=== PATIENT | male | born 1955 | race Caucasian/White ===

== ENCOUNTER 2018-06-17 07:22 | Day surgery (SDC) | payer OTHER ==
[~2018-06-17] VITALS: Ht 180.3 cm; Wt 83.5 kg
[~2018-06-17 07:22] MED LIST: GABA300 PO; HYDR1TAB94 PO; Hair, Skin & N1 EACH PO; LISI5 PO; OXYACE5T PO; PROM25 PO; TAMS.4ER PO; ZOLP10
--- NOTE | 2018-06-17 07:55 | NUR ---
Ambulatory in Day Surgery Patient States Post-Procedure ride home has been arranged. History, Chart, Medications and Allergies reviewed before start of procedure.Lungs clear T/O to Auscultation. Patient confirms NPO status and agrees with scheduled surgery.
--- NOTE | 2018-06-17 08:24 | NUR ---
IV ATTEMPT #1 BY ANEUDY GRIMALDO UNSUCCESSFUL, IV SUCCESSFULLY STARTED #2 BY JORDON GRIMALDO
--- NOTE | 2018-06-17 09:03 | NUR ---
VERIFIED WITH PYLENI THAT IT IS OKAY TO GIVE CEPHAZOLIN DUE TO ALLERGY TO PCN AND CEFAZOLIN. INFORMED IT IS.
--- NOTE | 2018-06-17 11:32 | NUR ---
INTO STEP VIA MAR. PT A&OX3. DENIES PAIN OR NAUSEA. LEFT GROIN DRESSING C/D/I. PT OFFERED PO FLUIDS-REFUSING AT THIS TIME.
--- NOTE | 2018-06-17 11:40 | NUR ---
PT GIVEN IVETTE MIST AND SODA CRACKERS PER HIS REQUEST.
--- NOTE | 2018-06-17 13:19 | NUR ---
Patient up to Ambulate independently. Gait steady. Discharge instructions reviewed with patient. Patient verbalizes understanding. Copy given to patient to take home. Patient States Post-Procedure ride home has been arranged. Discharged via wheelchair to private car for ride home.
== END 2018-06-18 23:13 | disposition home or self-care (01) ==
LOC: ORSCMMR 07:22 → ORD 09:00 → ORSCMMR 06-18 23:13
PROVIDERS: Surgery
PROC: 0YU60JZ Supplement Left Inguinal Region with Synthetic Substitute, Open Approach (ICD-10-PCS; principal; 2018-06-17 09:00)
DX: K40.90 Unilateral inguinal hernia, without obstruction or gangrene, not specified as recurrent (principal); I10 Essential (primary) hypertension; Z79.899 Other long term (current) drug therapy
CPT/HCPCS: C1781; J0690; J1100; J1885; J2250; J2405; J3010; J7120

== ENCOUNTER → 2020-01-29 | Outpatient (CLI) | payer MEDICARE ==
[2020-01-29 12:39] LABS: Source, Urine Catheter
[2020-01-29 13:19] LABS: Appearance, Urine Clear (Clear); Color, Urine Yellow (P-Yellow)
[2020-01-29 13:20] LABS: Bacteria Not Seen /hpf; Bilirubin, Urine Neg (Neg); Blood, Urine 2+ (Neg); Glucose Qualitative, Urine Neg (Normal); Ketones, Urine Neg (Neg); Leukocyte Esterase, Urine Neg (Neg); Nitrite, Urine Neg (Neg); Protein, Urine Trace (Neg); Squamous Epithelial Cells Rare /hpf (Few); Urobilinogen, Urine NORM (Normal); White Blood Cells, Urine Not Seen /hpf (0-5)
== END ==
LOC: LAB EV 11:00 → LAB SHORT 11:00
PROVIDERS: Nurse Practitioner Family
DX: N40.1 Benign prostatic hyperplasia with lower urinary tract symptoms (principal); N13.8 Other obstructive and reflux uropathy
CPT/HCPCS: 81001; 87070; 87077; 87186

== ENCOUNTER → 2020-02-15 | Outpatient (CLI) | payer MEDICARE | END | disposition home or self-care (01) | LOC: LAB SHORT 11:23 → PLD 11:23 | DX: D48.5 Neoplasm of uncertain behavior of skin (principal) | CPT/HCPCS: 88304; 88305 ==

== ENCOUNTER → 2021-03-11 | Outpatient (CLI) | payer MEDICARE | END | disposition home or self-care (01) | LOC: LAB SHORT 11:53 | DX: L82.1 Other seborrheic keratosis (principal) | CPT/HCPCS: 88305 ==

== ENCOUNTER 2021-05-21 05:50 | Day surgery (SDC) | payer MEDICARE ==
[~2021-05-21] VITALS: Ht 182.9 cm; Wt 85.1 kg
[~2021-05-21 05:50] MED LIST changes: +ZOLP10 PO
--- NOTE | 2021-05-21 09:09 | NUR ---
FOLDED 4X4 GAUZE UNDER CLEAR OCCLUSIVE DRSG TO MIDDLE ABDOMEN NOTED INTACT WITH NO VISIBLE DRAINAGE, SWELLING, ERYTHEMA OR BRUISING NOTED AROUND SITE. PATIENT QUIETLY LAYING IN GURNEY. WHEN ASKED, HE C/O 3-4/10 ACHING PAIN TO SURGICAL SITE AND DENIES NAUSEA. NO OTHER C/O VERBALIZED. AGREES TO DRINK JUICE.
--- NOTE | 2021-05-21 09:31 | NUR ---
TOLERATING SIPS OF JUICE. RATES UMBILICAL SURGICAL PAIN 3/10. DENIES OTHER C/O. SPOKE TO ON PHONE AND REVIEWED DISCHARGE INSTRUCTIONS. ANSWERED QUESTIONS.
--- NOTE | 2021-05-21 09:56 | NUR ---
0948- UP TO DRESS. GAIT STEADY. STATES UMBILICAL SURGICAL PAIN IS TOLERABLE AND DENIES NAUSEA. ANALGESIC GIVEN FOR C/O PAIN. PRESCRIPTION TO FILL GIVEN TO PATIENT. VSS. Discharge instructions reviewed with patient. Patient verbalizes understanding. Copy given to patient to take home. Patient States Post-Procedure ride home has been arranged with his .
== END 2021-05-21 09:54 | disposition home or self-care (01) ==
LOC: ORSCMMR 05:50 → ORD 07:30 → ORSCMMR 09:54
PROVIDERS: Surgery
PROC: 0WUF0JZ Supplement Abdominal Wall with Synthetic Substitute, Open Approach (ICD-10-PCS; principal; 2021-05-21 07:30)
DX: K43.6 Other and unspecified ventral hernia with obstruction, without gangrene (principal); I10 Essential (primary) hypertension; F17.210 Nicotine dependence, cigarettes, uncomplicated; Z79.899 Other long term (current) drug therapy
CPT/HCPCS: A9270; C1781; J0690; J1100; J2250; J2405; J2704; J3010; J7120

== ENCOUNTER 2024-06-18 08:37 | Emergency (ER) | payer MEDICARE ==
[~2024-06-18] VITALS: Ht 182.9 cm; Wt 68.0 kg
[2024-06-18] MEDS ORDERED: Enoxaparin 60 MG/0.6 ML SYR SC ONE (09:35)
[2024-06-18 10:10] VITALS: BP 109/73
[2024-06-18] MEDS ORDERED: Rivaroxaban 10 MG Tab PO ONE (10:35)
== END 2024-06-18 11:09 | disposition home or self-care (01) ==
LOC: ER 08:37
DX: I82.402 Acute embolism and thrombosis of unspecified deep veins of left lower extremity (principal); Z76.0 Encounter for issue of repeat prescription; I10 Essential (primary) hypertension; J45.909 Unspecified asthma, uncomplicated
CPT/HCPCS: 99281; A9270

== ENCOUNTER 2024-07-17 07:01 | Day surgery (SDC) | payer MEDICARE ==
[~2024-07-17] VITALS: Ht 182.9 cm; Wt 65.6 kg
[2024-07-17] VITALS (9 sets, daily range): BP systolic 107–145; BP diastolic 67–80
[~2024-07-17 07:01] MED LIST changes: +ACET500 PO; +CeFAZolin Sodium 2,000 MG in NS 100 ML IV SCH; +ELIQUIS5 M2 PO; +ENOX60I SC; +LOPE2C PO; +Lactated Ringer's 1,000 ML IV SCH; +METAMUCIL POWD798 GM; +ONDA4 PO; +OXYC5 PO
[2024-07-17] MEDS ORDERED: CeFAZolin Sodium 2,000 MG VIAL ONE (07:02)
[2024-07-17] MEDS ORDERED: Lidocaine HCl 1% 30 ML SDV ONE (07:19)
[2024-07-17] MEDS ORDERED: Bupivacaine 0.5% HCl 5 MG/ML 30MLVIAL ONE (07:19)
[2024-07-17] MEDS ORDERED: Midazolam HCl 1MG / ML 2ML Vial ONE (07:32)
[2024-07-17] MEDS ORDERED: FentaNYL Citrate 50 MCG/ML 5 ML Injection ONE (07:32)
[2024-07-17] MEDS ORDERED: propofoL 20 ML IV ONE (07:32)
--- NOTE | 2024-07-17 07:32 | NUR ---
Ambulatory in Day Surgery History, Chart, Medications and Allergies reviewed before start of procedure. Pre-Op teaching done. Pt verbalizes understanding. Patient States Post-Procedure ride home has been arranged.
[2024-07-17] MEDS ORDERED: Rocuronium Bromide 10 MG/ML 5ML Injection IV ONE (07:33)
[2024-07-17] MEDS ORDERED: Albuterol 2.5 MG/3 ML VIAL INH PRN (07:35)
[2024-07-17] MEDS ORDERED: Atropine Sulfate 0.1 MG/ML 10ML SYR IV PRN (07:35)
[2024-07-17] MEDS ORDERED: HYDROmorphone HCl/Pf 1MG SYR IV PRN (07:35)
[2024-07-17] MEDS ORDERED: ePHEDrine Sulfate 50 MG/ML 1ML Injection IV PRN (07:35)
[2024-07-17] MEDS ORDERED: Labetalol HCL 5 MG/ML 4ML Injection (Single Dose) IV PRN (07:35)
[2024-07-17] MEDS ORDERED: Phenylephrine HCl 100 MCG/ML-NS 10MLSYR (1MG/10ML) ONE (07:43)
[2024-07-17] MEDS ORDERED: Droperidol 5 mg/2 ml Vial IV PRN (08:00)
[2024-07-17] MEDS ORDERED: Ondansetron HCl 2 MG / ML 2ML Vial IV PRN (08:00)
[2024-07-17] MEDS ORDERED: HydrALAZINE HCl 20 MG / ML 1ML Vial IV PRN (08:05)
[2024-07-17] MEDS ORDERED: FentaNYL Citrate 50 MCG/ML 2 ML Injection IV PRN ×2 (08:05)
[2024-07-17] MEDS ORDERED: Sugammadex Sodium 200 MG/2ML SDV (100 MG/ML) ONE (08:08)
[2024-07-17] MEDS ORDERED: Dexamethasone Sod Phos 10 MG/ML 1ML VIAL ONE (08:10)
[2024-07-17] MEDS ORDERED: Ondansetron HCl 2 MG / ML 2ML Vial ONE (08:10)
[2024-07-17] MEDS ORDERED: HYDROcodone 5-APAP 325 TAB PO PRN (08:50)
--- NOTE | 2024-07-17 09:39 | NUR ---
DISCHARGE PT A&OX4/VSS/RA/JAMES PO/DENIES PAIN/IV DC'D, DC INS PROVIDED/COPY SENT WITH 1 LAFE SCRIPT, LEFT VIA WC WITH DC VOL WITH ALL PERSONAL POSSESSIONS TO GO HOME WITH JD EDWARDS/CHASITY.
== END 2024-07-17 22:50 | disposition home or self-care (01) ==
LOC: ORSCMMR 07:01 → ORD 07:30 → ORSCMMR 22:50
PROVIDERS: Surgery
PROC: 0JH60WZ Insertion of Totally Implantable Vascular Access Device into Chest Subcutaneous Tissue and Fascia, Open Approach (ICD-10-PCS; principal; 2024-07-17 07:30)
DX: C17.2 Malignant neoplasm of ileum (principal); I10 Essential (primary) hypertension; E78.5 Hyperlipidemia, unspecified; J45.909 Unspecified asthma, uncomplicated; N40.0 Benign prostatic hyperplasia without lower urinary tract symptoms; Z86.718 Personal history of other venous thrombosis and embolism; Z79.01 Long term (current) use of anticoagulants; Z79.899 Other long term (current) drug therapy; Z87.891 Personal history of nicotine dependence; Z01.810 Encounter for preprocedural cardiovascular examination
CPT/HCPCS: 77001; 93005; 93010; C1788; J0690; J1100; J1642; J2250; J2371; J2405; J2704; J3010; J7120

== ENCOUNTER 2024-07-24 17:17 | Emergency (ER) | payer MEDICARE ==
[~2024-07-24] VITALS: Ht 182.9 cm; Wt 69.0 kg
[~2024-07-24 17:17] MED LIST changes: -CeFAZolin Sodium 2,000 MG in NS 100 ML IV SCH; -Lactated Ringer's 1,000 ML IV SCH
[2024-07-24 18:28] LABS: BASOPHILS ABSOLUTE AUTO 0.05 K/mm3 (0.00-0.23); BASOPHILS PERCENT AUTO 1 % (0-2); EOSINOPHILS ABSOLUTE AUTO 0.21 K/mm3 (0.00-0.68); EOSINOPHILS PERCENT AUTO 2 % (0-6); Hematocrit 35.1 % (37.0-53.0); Hemoglobin 11.7 g/dL (13.5-17.5); IMMATURE GRAN ABSOLUTE AUTO 0.03 K/mm3 (0.00-0.10); IMMATURE GRAN PERCENT AUTO 0 % (0-1); LYMPHOCYTES ABSOLUTE AUTO 1.56 K/mm3 (0.84-5.20); LYMPHOCYTES PERCENT AUTO 17 % (21-46); MONOCYTES ABSOLUTE AUTO 0.54 K/mm3 (0.16-1.47); MONOCYTES PERCENT AUTO 6 % (4-13); Mean Corpuscular HGB 30.2 pg (26.0-34.0); Mean Corpuscular HGB Conc 33.3 g/dL (31.5-36.5); Mean Corpuscular Volume 91 fL (80-100); NEUTROPHILS ABSOLUTE AUTO 6.56 K/mm3 (1.96-9.15); NEUTROPHILS PERCENT AUTO 73 % (41-73); Platelet Count 218 K/mm3 (150-400); RDW Coefficient Variation 15.8 % (11.7-14.2); RDW Standard Deviation 52.1 fL (35.1-46.3); Red Blood Cell Count 3.87 M/mm3 (4.30-5.90); White Blood Cell Count 8.95 K/mm3 (4.00-11.30)
[2024-07-24 18:52] LABS: Albumin, Blood 3.3 g/dL (3.4-5.0); Albumin/Globulin Ratio 0.9 (0.8-1.8); Bilirubin, Total 0.3 mg/dL (0.1-1.0); Bun/Creatinine Ratio 24.8 (12.0-20.0); Creatinine, Blood 0.85 mg/dL (0.60-1.20); Globulin, Blood 3.5 g/dL (2.2-4.0); Potassium, Blood 3.6 mmol/L (3.5-5.5); Total Protein, Blood 6.8 g/dL (6.4-8.2)
[2024-07-24] MEDS ORDERED: ELIQUIS5 M3 PO (19:11)
[2024-07-24 21:00] VITALS: BP 115/76
== END 2024-07-24 21:30 | disposition home or self-care (01) ==
LOC: ER 17:17
PROVIDERS: Emergency Medicine
DX: K94.19 Other complications of enterostomy (principal); I10 Essential (primary) hypertension; J45.909 Unspecified asthma, uncomplicated; Z79.899 Other long term (current) drug therapy; Z88.0 Allergy status to penicillin
CPT/HCPCS: 74177; 80053; 83690; 85025; 99284-25; Q9967

== ENCOUNTER 2024-09-04 14:04 | Inpatient (IN) | payer MEDICARE ==
[~2024-09-04] VITALS: Ht 182.9 cm; Wt 59.9 kg
[~2024-09-04 14:04] MED LIST changes: +ELIQUIS5 M3 PO
[2024-09-04] MEDS ORDERED: NS 1,000 ML IV SCH ×3 (14:15→18:55)
[2024-09-04 14:43] LABS: BASOPHILS ABSOLUTE AUTO 0.02 K/mm3 (0.00-0.23); BASOPHILS PERCENT AUTO 0 % (0-2); EOSINOPHILS ABSOLUTE AUTO 0.02 K/mm3 (0.00-0.68); EOSINOPHILS PERCENT AUTO 0 % (0-6); Hemoglobin 14.7 g/dL (13.5-17.5); IMMATURE GRAN ABSOLUTE AUTO 0.08 K/mm3 (0.00-0.10); IMMATURE GRAN PERCENT AUTO 1 % (0-1); LYMPHOCYTES ABSOLUTE AUTO 1.55 K/mm3 (0.84-5.20); LYMPHOCYTES PERCENT AUTO 13 % (21-46); MONOCYTES PERCENT AUTO 9 % (4-13); Mean Corpuscular HGB 30.4 pg (26.0-34.0); Mean Corpuscular HGB Conc 36.8 g/dL (31.5-36.5); Mean Corpuscular Volume 83 fL (80-100); Mean Platelet Volume 8.9 fL (9.1-12.4); NEUTROPHILS ABSOLUTE AUTO 8.88 K/mm3 (1.96-9.15); NEUTROPHILS PERCENT AUTO 77 % (41-73); Platelet Count 328 K/mm3 (150-400); RDW Coefficient Variation 13.6 % (11.7-14.2); Red Blood Cell Count 4.83 M/mm3 (4.30-5.90); White Blood Cell Count 11.55 K/mm3 (4.00-11.30)
[2024-09-04] MEDS ORDERED: Prinivil10 MG PO (15:09)
[2024-09-04] MEDS ORDERED: LOPERAMIDE212 PO (15:10)
[2024-09-04] MEDS ORDERED: ZOFRAN8 MG PO (15:10)
[2024-09-04 15:12] LABS: Albumin, Blood 3.8 g/dL (3.4-5.0); Albumin/Globulin Ratio 0.8 (0.8-1.8); Bilirubin, Total 0.3 mg/dL (0.1-1.0); Bun/Creatinine Ratio 38.3 (12.0-20.0); Creatinine, Blood 2.74 mg/dL (0.60-1.20); Globulin, Blood 4.5 g/dL (2.2-4.0); Magnesium, Blood 2.3 mg/dL (1.6-2.4); Potassium, Blood 3.2 mmol/L (3.5-5.5); Total Protein, Blood 8.3 g/dL (6.4-8.2)
[2024-09-04] MEDS ORDERED: OxyCODONE HCL 5 MG TAB PO PRN (17:25)
[2024-09-04] MEDS ORDERED: Acetaminophen 325 MG TABLET PO PRN (17:25)
[2024-09-04] MEDS ORDERED: Loperamide HCl 2 MG Cap PO PRN (18:40)
[2024-09-04] MEDS ORDERED: Ondansetron 4 MG TAB PO PRN (18:40)
[2024-09-04 18:42] LABS: Bun/Creatinine Ratio 41.3 (12.0-20.0); Calcium, Blood 8.2 mg/dL (8.5-10.1); Creatinine, Blood 2.42 mg/dL (0.60-1.20)
[2024-09-04] MEDS ORDERED: Potassium Chloride 20 MEQ TabCR PO ONE (19:00)
[2024-09-04] MEDS ORDERED: ACETAMINOPHEN500 M2 PO (19:30)
[2024-09-04] MEDS ORDERED: CEFP200 PO (19:31)
[2024-09-04] MEDS ORDERED: ENOX60I (19:32)
[2024-09-04 20:35] LABS: Adenovirus F 40/41 Not Detected (NOT DETECT); Astrovirus Not Detected (NOT DETECT); Campylobacter Sp Not Detected (NOT DETECT); Cryptosporidium Not Detected (NOT DETECT); Cyclospora Cayetanensis Not Detected (NOT DETECT); E. Coli O157 Not Detected (NOT DETECT); Entamoeba Histolytica Not Detected (NOT DETECT); Enteroaggregative E. coli-EAEC Not Detected (NOT DETECT); Enteropathogenic E. coli-EPEC Not Detected (NOT DETECT); Enterotoxigenic E. coli-ETEC Not Detected (NOT DETECT); Giardia Lamblia Not Detected (NOT DETECT); Norovirus GI/GII Not Detected (NOT DETECT); Plesiomonas Shigelloides Not Detected (NOT DETECT); Rotavirus A Not Detected (NOT DETECT); Salmonella Sp Not Detected (NOT DETECT); Sapovirus Not Detected (NOT DETECT); Shiga Toxin-prod E. coli-STEC Not Detected (NOT DETECT); Shigella/Enteroin E. coli-EIEC Not Detected (NOT DETECT); Vibrio Cholerae Not Detected (NOT DETECT); Vibrio Sp Not Detected (NOT DETECT); Yersinia Enterocolitica Not Detected (NOT DETECT)
[2024-09-04] MEDS ORDERED: Apixaban 5 MG Tab PO SCH (21:00)
[2024-09-04] MEDS ORDERED: Gabapentin 300 MG Cap PO SCH (21:00)
[2024-09-04 21:31] LABS: Bun/Creatinine Ratio 41.1 (12.0-20.0); Calcium, Blood 8.5 mg/dL (8.5-10.1); Creatinine, Blood 2.46 mg/dL (0.60-1.20); Potassium, Blood 3.2 mmol/L (3.5-5.5)
[2024-09-04 22:21] VITALS: BP 116/72
[2024-09-04] MEDS ORDERED: Potassium Chloride 20 MEQ/15 ML UDC PO ONE (22:50)
[2024-09-05 01:39] LABS: Bun/Creatinine Ratio 42.1 (12.0-20.0); Calcium, Blood 8.2 mg/dL (8.5-10.1); Creatinine, Blood 2.35 mg/dL (0.60-1.20); Potassium, Blood 3.4 mmol/L (3.5-5.5)
[2024-09-05] MEDS ORDERED: Potassium Chloride 20 MEQ/15 ML UDC PO ONE (02:15)
[2024-09-05 02:37] VITALS: BP 105/66
[2024-09-05 04:53] VITALS: BP 107/71
--- NOTE | 2024-09-05 05:32 | NUR ---
SHIFT SUMMARY PT ARRIVED TO [facility] @ 2130. A&OX4. BPs SOFT HOWEVER STABLE AT THIS TIME. PT REPORTED MILD DIZZINESS WHEN STANDING HOWEVER RESOLVED QUICKLY. OTHERWISE VSS ON RA @ >96%. ON TELE PT IN NSR IN 60s-70s. PT HAS MILD LOWER BACK PAIN D/T, PRN TYLENOL GIVEN WITH GOOD EFFECT. PT HAS SIGNIFICANT OUTPUT OUT OF RLQ COLOSTOMY. PT EMPTYING SELF AND NURSE RECORDING, SEE CHART FOR ACCURATE I&O's. PT CALLS APPROPRIATELY AND USES CALL VELOZ WHEN NEEDS ASSISTANCE TO BATHROOM. POTASSIUM CONTINUED TO BE LOW, MD ORDERED 2 ONE TIME DOSES OF 40MEQ LIQUID POTASSIUM CHLORIDE. GIVEN WITH GOOD EFFECT. BNPs CONTINUED TO BE DRAWN Q4HR. SEE RESULTS IN CHART. NO FURTHER QUESTIONS OR CONCERNS AT THIS TIME. WILL CONTINUE WITH PLAN OF CARE.
[2024-09-05 06:31] LABS: BASOPHILS ABSOLUTE AUTO 0.02 K/mm3 (0.00-0.23); BASOPHILS PERCENT AUTO 0 % (0-2); EOSINOPHILS ABSOLUTE AUTO 0.08 K/mm3 (0.00-0.68); EOSINOPHILS PERCENT AUTO 1 % (0-6); Hematocrit 33.9 % (37.0-53.0); Hemoglobin 12.3 g/dL (13.5-17.5); IMMATURE GRAN ABSOLUTE AUTO 0.05 K/mm3 (0.00-0.10); IMMATURE GRAN PERCENT AUTO 1 % (0-1); LYMPHOCYTES ABSOLUTE AUTO 1.58 K/mm3 (0.84-5.20); LYMPHOCYTES PERCENT AUTO 18 % (21-46); MONOCYTES ABSOLUTE AUTO 1.13 K/mm3 (0.16-1.47); MONOCYTES PERCENT AUTO 13 % (4-13); Mean Corpuscular HGB 30.7 pg (26.0-34.0); Mean Corpuscular HGB Conc 36.3 g/dL (31.5-36.5); Mean Corpuscular Volume 85 fL (80-100); NEUTROPHILS ABSOLUTE AUTO 6.01 K/mm3 (1.96-9.15); NEUTROPHILS PERCENT AUTO 68 % (41-73); Platelet Count 214 K/mm3 (150-400); RDW Coefficient Variation 13.7 % (11.7-14.2); Red Blood Cell Count 4.01 M/mm3 (4.30-5.90); White Blood Cell Count 8.87 K/mm3 (4.00-11.30)
[2024-09-05 06:49] LABS: Bun/Creatinine Ratio 40.5 (12.0-20.0); Calcium, Blood 8.4 mg/dL (8.5-10.1); Creatinine, Blood 2.15 mg/dL (0.60-1.20); Potassium, Blood 3.9 mmol/L (3.5-5.5)
[2024-09-05] MEDS ORDERED: NS 1,000 ML IV SCH (07:20)
[2024-09-05 07:49] VITALS: BP 99/64
[2024-09-05 10:16] LABS: Bun/Creatinine Ratio 39.6 (12.0-20.0); Calcium, Blood 8.4 mg/dL (8.5-10.1); Creatinine, Blood 2.07 mg/dL (0.60-1.20); Potassium, Blood 3.4 mmol/L (3.5-5.5)
[2024-09-05 15:05] VITALS: BP 106/67
[2024-09-05 16:29] VITALS: BP 110/66
--- NOTE | 2024-09-05 16:45 | NUR ---
Upon the suggestion of the patient's RN Nina, I visited the patient. The patient tells me about his medical challenges and how between the chemotherapy and the ostomy he is unable to manage. He states that he is hoping to delay the chemo long enough to "get reattached" so he he could remove one of the extremely discouraging elements. He then talks at length about his coping skills, his solid family friend support and the lessons he learned as a young man. We explore those resources and discuss how he can leverage them better in his current situation and ways he can reframe his more darker thoughts. The patient responded well and showed signs of an elevated mood.
--- NOTE | 2024-09-05 18:21 | NUR ---
SHIFT SUMMARY PT TRANSFERED FROM PCU AT APPROX 1700 RECTAL TUBE CONNECTED TO BOTTOM OF OSTOMY BAG REMAINS CONNECTED HELPING TO DRAIN LARGE AMOUNTS OF LIQUID STOOL. PT SITTING AT EDGE OF BED EATING. HAS DENIED PAINI DURING SHIFT. WHILE SITTING UP BOTH STOMAS HAVE PROTRUDED IN BAG HELPING WITH OUTPUT. PT USING URINAL TO VOID. IVF INFUSING PER EMAR
--- NOTE | 2024-09-05 18:33 | NUR ---
SHIFT SUMMARY: PT A&OX4 CALM AND COOPERATIVE. VSS ON RA. 1 PERSON ASSIST. PT REPORTED FEELING DIZZY UPON STANDING BUT RESOLVED QUICKLY. PT C/O PAIN IN LEGS. MEDICATED PER EMAR. LARGE OUTPUT IN RLQ OSTOMY. PT REPORTS EMPTYING BAG HIMSELF Q1H. BAG WAS CHANGED D/T RUPTURE. GOWN AND LINEN CHANGE PERFORMED. PT TRANSFERRED TO SURGICAL UNIT AND REPORT GIVEN TO SURGICAL NURSE.
[2024-09-05 20:03] VITALS: BP 110/71
[2024-09-05] MEDS ORDERED: Banana Flakes/Tos 1 EA Powder Pack PO SCH (21:00)
[2024-09-06] VITALS (7 sets, daily range): BP systolic 66–114; BP diastolic 54–67
[2024-09-06 05:19] LABS: BASOPHILS ABSOLUTE AUTO 0.03 K/mm3 (0.00-0.23); BASOPHILS PERCENT AUTO 0 % (0-2); EOSINOPHILS ABSOLUTE AUTO 0.11 K/mm3 (0.00-0.68); EOSINOPHILS PERCENT AUTO 1 % (0-6); Hematocrit 32.3 % (37.0-53.0); Hemoglobin 11.8 g/dL (13.5-17.5); IMMATURE GRAN ABSOLUTE AUTO 0.06 K/mm3 (0.00-0.10); IMMATURE GRAN PERCENT AUTO 1 % (0-1); LYMPHOCYTES ABSOLUTE AUTO 1.84 K/mm3 (0.84-5.20); LYMPHOCYTES PERCENT AUTO 21 % (21-46); MONOCYTES ABSOLUTE AUTO 0.86 K/mm3 (0.16-1.47); MONOCYTES PERCENT AUTO 10 % (4-13); Mean Corpuscular HGB 30.7 pg (26.0-34.0); Mean Corpuscular HGB Conc 36.5 g/dL (31.5-36.5); Mean Corpuscular Volume 84 fL (80-100); Mean Platelet Volume 8.5 fL (9.1-12.4); NEUTROPHILS PERCENT AUTO 66 % (41-73); Platelet Count 211 K/mm3 (150-400); RDW Coefficient Variation 13.9 % (11.7-14.2); RDW Standard Deviation 39.8 fL (35.1-46.3); Red Blood Cell Count 3.84 M/mm3 (4.30-5.90)
[2024-09-06 05:45] LABS: Bun/Creatinine Ratio 35.2 (12.0-20.0); Calcium, Blood 8.6 mg/dL (8.5-10.1); Creatinine, Blood 1.65 mg/dL (0.60-1.20); Potassium, Blood 3.3 mmol/L (3.5-5.5)
[2024-09-06] MEDS ORDERED: NS 1,000 ML IV SCH (06:30)
--- NOTE | 2024-09-06 07:57 | NUR ---
SHIFT SUMMARY S/P HYPONATREMIA. VSS. PT TOLERATING PO INTAKE. VOIDING. OSTOMY APPLIANCE CHANGED x3 OVERNIGHT R/T LEAKING. SITE AROUND ILEOSTOMY INCREASINGLY TENDER AND EXCORIATED R/T FREQUENT APPLIANCE CHANGES. OUTPUT CURRENTLY THIN, LIQUID, YELLOW; NO SOLID/FORMED PIECES. UPPER STOMA OF DOUBLE BARREL REMAINS PROLAPSED APPROX 5INCHES; LOWER STOMA INTERMITTENTLY INVERTS OR PROLAPSES APPROX 2 INCHES, SITE c MAJORITY OF OUTPUT. PT HELPFUL & COOPERATIVE c CARE. PT REPORTS INCREASED PAIN/FRUSTRATION c OSTOMY OUTPUT. PT MEDICATED PER EMAR. IV FLUIDS INFUSING. Q30 MIN CHECKS ON ILEOSTOMY TO PREVENT LEAKING. PT RESTING IN CHAIR, CALL LIGHT IN REACH, REPORT GIVEN TO DAY RN.
[2024-09-06] MEDS ORDERED: Loperamide HCl 2 MG Cap PO SCH (10:00)
[2024-09-06 11:34] LABS: Calcium, Blood 8.3 mg/dL (8.5-10.1); Creatinine, Blood 1.63 mg/dL (0.60-1.20); Potassium, Blood 2.9 mmol/L (3.5-5.5)
--- NOTE | 2024-09-06 15:17 | NUR ---
PT IS ALERT AND ORIENTED, PLEASANT AND COOPERATIVE. MET WITH PT AT BEDSIDE TO FURTHER DISCUSS GOALS OF CARE. PT CURRENTLY HAS OSTOMY IN PLACE DUE TO PREVIOUS BLOCKAGE VS. CANCER. ONCE OSTOMY PLACED, TISSUE BIOPSY SHOWED TRACE CANCER CELLS. HE IS CURRENTLY UNDERGOING CHEMOTHERAPY, STATES BOTH OSTOMY AND CHEMO TOO CHALLENGING WHEN DONE TOGETHER. PER PT, PLAN HAS ALWAYS BEEN FOR OSTOMY REVERSAL, AND IS NOW WANTING TO COMPLETE THIS IF POSSIBLE, PRIOR TO CONTINUING CHEMO. HE PLANS TO FOLLOW UP OUTPATIENT. NO FURTHER PALLIATIVE CARE NEEDS IDENTIFIED AT THIS TIME.
--- NOTE | 2024-09-06 15:40 | NUR ---
SHIFT SUMMARY PT ALERT AND ORIENTED THROUGHOUT SHIFT. PT DENIED PAIN OR NEED FOR PAIN MEDICATION. PT HAS HAD LARGE OUTPUT OF STOOL FROM ILEOSTOMY THROUGHOUT SHIFT. ILEOSTOMY BAG REINFORCED WITH TAPE PER PT REQUEST. BED IN LOW POSITION AND CALL LIGHT IN REACH.
[2024-09-07] VITALS (7 sets, daily range): BP systolic 92–106; BP diastolic 55–66
[2024-09-07 00:24] LABS: Calcium, Blood 8.1 mg/dL (8.5-10.1); Creatinine, Blood 1.45 mg/dL (0.60-1.20); Potassium, Blood 3.2 mmol/L (3.5-5.5)
--- NOTE | 2024-09-07 04:09 | NUR ---
SHIFT SUMMARY NO ACUTE CHANGES T/O SHIFT. PT A/OX4 WITH VSS. ILEOSTOMY CONTINUES TO HAVE LIQUID BROWN OUTPUT REQUIRING Q30MIN CHECKS. OSTOMY APPLIANCE CHANGED AT START OF SHIFT DUE TO LEAKING. SKIN AROUND STOMA APPEARS EXCORIATED FROM FREQUENT CHANGES; SKIN BARRIER PREP, CERARING,AND PROTECTANT POWDER APPLIED. PT COOPERATIVE AND HELPFUL WITH CARE. DENIES PAIN OR N/V. JAMES PO INTAKE. IVF INFUSING PER ORDERS. IS VOIDING CLEAR, YELLOW URINE. PT CURRENTLY RESTING IN BED WITH CALL LIGHT IN REACH. WILL GIVE REPORT TO ONCOMING RN.
[2024-09-07 06:03] LABS: BASOPHILS ABSOLUTE AUTO 0.04 K/mm3 (0.00-0.23); BASOPHILS PERCENT AUTO 1 % (0-2); EOSINOPHILS ABSOLUTE AUTO 0.13 K/mm3 (0.00-0.68); EOSINOPHILS PERCENT AUTO 2 % (0-6); Hematocrit 29.8 % (37.0-53.0); Hemoglobin 10.6 g/dL (13.5-17.5); IMMATURE GRAN ABSOLUTE AUTO 0.04 K/mm3 (0.00-0.10); IMMATURE GRAN PERCENT AUTO 1 % (0-1); LYMPHOCYTES ABSOLUTE AUTO 1.59 K/mm3 (0.84-5.20); LYMPHOCYTES PERCENT AUTO 23 % (21-46); MONOCYTES ABSOLUTE AUTO 0.74 K/mm3 (0.16-1.47); MONOCYTES PERCENT AUTO 11 % (4-13); Mean Corpuscular HGB 30.4 pg (26.0-34.0); Mean Corpuscular HGB Conc 35.6 g/dL (31.5-36.5); Mean Corpuscular Volume 85 fL (80-100); Mean Platelet Volume 8.4 fL (9.1-12.4); NEUTROPHILS ABSOLUTE AUTO 4.36 K/mm3 (1.96-9.15); NEUTROPHILS PERCENT AUTO 63 % (41-73); Platelet Count 194 K/mm3 (150-400); RDW Coefficient Variation 14.1 % (11.7-14.2); RDW Standard Deviation 41.1 fL (35.1-46.3); Red Blood Cell Count 3.49 M/mm3 (4.30-5.90)
[2024-09-07 06:28] LABS: Bun/Creatinine Ratio 29.5 (12.0-20.0); Calcium, Blood 8.5 mg/dL (8.5-10.1); Creatinine, Blood 1.39 mg/dL (0.60-1.20)
[2024-09-07] MEDS ORDERED: Potassium Chloride 20 MEQ TabCR PO SCH (08:00)
[2024-09-07] MEDS ORDERED: Loperamide HCl 2 MG Cap PO SCH (09:00)
[2024-09-07] MEDS ORDERED: Diphenoxylat/Atrop 2.5 / 0.025MG 1 Tab PO PRN (14:45)
[2024-09-07] MEDS ORDERED: Pantoprazole Sodium 40 MG Injection IV SCH (16:30)
--- NOTE | 2024-09-07 19:19 | NUR ---
SUMMARY PT CONTINUES TO HAVE COPIOUS AMOUNTS OF OUTPUT FROM ILEOSTOMY. PT TOLERATING PO. IV FLUIDS INFUSING PER ORDERS. MEDICATED OT DURING SHIFT PER ORDERS FOR LLE PAIN. CALL LIGHT IN REACH.
[2024-09-07 23:13] LABS: C DIFFICILE DNA NEGATIVE (Negative)
--- NOTE | 2024-09-08 00:50 | NUR ---
UPDATE PT NEGATIVE FOR C-DIF, FROM LAB
--- NOTE | 2024-09-08 03:07 | NUR ---
UPDATE TELEPHONE ORDER OBTAINED TO D/C TELE BY HOPSITALIST AT THIS TIME.
[2024-09-08 05:02] VITALS: BP 94/64
[2024-09-08 05:24] LABS: BASOPHILS ABSOLUTE AUTO 0.03 K/mm3 (0.00-0.23); BASOPHILS PERCENT AUTO 1 % (0-2); EOSINOPHILS ABSOLUTE AUTO 0.15 K/mm3 (0.00-0.68); EOSINOPHILS PERCENT AUTO 3 % (0-6); Hematocrit 26.4 % (37.0-53.0); Hemoglobin 9.2 g/dL (13.5-17.5); IMMATURE GRAN ABSOLUTE AUTO 0.03 K/mm3 (0.00-0.10); IMMATURE GRAN PERCENT AUTO 1 % (0-1); LYMPHOCYTES ABSOLUTE AUTO 1.24 K/mm3 (0.84-5.20); LYMPHOCYTES PERCENT AUTO 22 % (21-46); MONOCYTES ABSOLUTE AUTO 0.72 K/mm3 (0.16-1.47); MONOCYTES PERCENT AUTO 13 % (4-13); Mean Corpuscular HGB 30.5 pg (26.0-34.0); Mean Corpuscular HGB Conc 34.8 g/dL (31.5-36.5); Mean Corpuscular Volume 87 fL (80-100); Mean Platelet Volume 8.4 fL (9.1-12.4); NEUTROPHILS ABSOLUTE AUTO 3.58 K/mm3 (1.96-9.15); NEUTROPHILS PERCENT AUTO 62 % (41-73); Platelet Count 148 K/mm3 (150-400); RDW Coefficient Variation 14.6 % (11.7-14.2); RDW Standard Deviation 42.5 fL (35.1-46.3); Red Blood Cell Count 3.02 M/mm3 (4.30-5.90); White Blood Cell Count 5.75 K/mm3 (4.00-11.30)
[2024-09-08 05:52] LABS: Bun/Creatinine Ratio 22.1 (12.0-20.0); Calcium, Blood 7.8 mg/dL (8.5-10.1); Creatinine, Blood 1.22 mg/dL (0.60-1.20); Potassium, Blood 3.9 mmol/L (3.5-5.5)
[2024-09-08] MEDS ORDERED: Diphenoxylat/Atrop 2.5 / 0.025MG 1 Tab PO PRN (07:00)
[2024-09-08 07:33] VITALS: BP 98/64
--- NOTE | 2024-09-08 09:21 | NUR ---
SHIFT SUMMARY NO ACUTE CHANGES THIS SHIFT. OSTOMY OUTPUT NOW THICK LIQUID CONSISTENCY, REQUIRING EMPTYING LESS FREQUENTLY AT 1-2 HRS. JAMES PO INTAKE, DENIES N/V OR ABD PAIN. IVF INFUSING PER ORDERS. COMPLAINS OF BLE LEG PAIN, NEGATIVE DORSI FLEX; STATES "LEGS JUST ACHE FROM BEING IN BED." PAIN MANAGED PER EMAR, FLOATING HEELS/LEGS, AND REPOSITIONING. SCDS IN PLACE. ENCOURAGED AMBULATION WHEN ABLE WITH ASSISTANCE. TELE D/C OBTAINED. REPORT GIVEN TO DAY RN.
[2024-09-08 14:27] VITALS: BP 110/59
--- NOTE | 2024-09-08 16:45 | NUR ---
summary NO ACUTE CHANGES T/O SHIFT. PT TOLERATING PO. OSTOMY OUTPUT DECREASED FROM YESTERDAY AND CONSISTENCY IS THICKER, NOT WATERY. PT AMBULATED IN [place] WITH SPOUSE TODAY. CALL LIGHT IN REACH.
[2024-09-08 20:04] VITALS: BP 96/52
[2024-09-09 04:58] VITALS: BP 109/59
[2024-09-09 06:04] LABS: BASOPHILS ABSOLUTE AUTO 0.02 K/mm3 (0.00-0.23); BASOPHILS PERCENT AUTO 0 % (0-2); EOSINOPHILS ABSOLUTE AUTO 0.09 K/mm3 (0.00-0.68); EOSINOPHILS PERCENT AUTO 1 % (0-6); Hematocrit 23.6 % (37.0-53.0); Hemoglobin 8.3 g/dL (13.5-17.5); IMMATURE GRAN ABSOLUTE AUTO 0.06 K/mm3 (0.00-0.10); IMMATURE GRAN PERCENT AUTO 1 % (0-1); LYMPHOCYTES ABSOLUTE AUTO 1.05 K/mm3 (0.84-5.20); LYMPHOCYTES PERCENT AUTO 14 % (21-46); MONOCYTES ABSOLUTE AUTO 1.05 K/mm3 (0.16-1.47); MONOCYTES PERCENT AUTO 14 % (4-13); Mean Corpuscular HGB Conc 35.2 g/dL (31.5-36.5); Mean Corpuscular Volume 88 fL (80-100); Mean Platelet Volume 8.5 fL (9.1-12.4); NEUTROPHILS ABSOLUTE AUTO 5.02 K/mm3 (1.96-9.15); NEUTROPHILS PERCENT AUTO 69 % (41-73); Platelet Count 123 K/mm3 (150-400); RDW Coefficient Variation 15.1 % (11.7-14.2); RDW Standard Deviation 44.9 fL (35.1-46.3); Red Blood Cell Count 2.68 M/mm3 (4.30-5.90); White Blood Cell Count 7.29 K/mm3 (4.00-11.30)
[2024-09-09 06:44] LABS: Bun/Creatinine Ratio 17.1 (12.0-20.0); Calcium, Blood 7.5 mg/dL (8.5-10.1); Creatinine, Blood 1.23 mg/dL (0.60-1.20); Potassium, Blood 3.9 mmol/L (3.5-5.5)
--- NOTE | 2024-09-09 07:23 | NUR ---
SHIFT SUMMARY NO ACUTE CHANGES T/O SHIFT. A/OX4 WITH VSS. OSTOMY APPLIANCE CHANGED AT 0500 DUE TO LEAKAGE. STOOL APPEARS THICKER IN CONSISTENCY SINCE START OF SHIFT, REQUIRING TO BE EMPTIED LESS FREQUENTLY AT 1.5-2HRS. PT JAMES PO, DENIES N/V OR ABD PAIN. C/O BLE PAIN, MANAGED PER EMAR AND REPOSTIONING. ENCOURAGED AMB JAMES. IVF INFUSING PER ORDERS. MEPILEX APPLIED TO COCCYX. Q2 TURNS, PT ABLE TO ASSIST. PT USING I.S. IND. REPORT GIVEN TO DAY RN.
[2024-09-09 07:28] VITALS: BP 103/57
[2024-09-09] MEDS ORDERED: BANATROL PLUS1 EAC1 PO (10:06)
[2024-09-09] MEDS ORDERED: DIPATR PO (10:07)
[2024-09-09] MEDS ORDERED: PANT40 PO (10:07)
--- NOTE | 2024-09-09 11:30 | NUR ---
DC INSTRUCT REVIEWED WITH PT. STATED UNDERSTANDING. IV DC'D INTACT. WILL DC WHEN FRIEND ARRIVES.
--- NOTE | 2024-09-09 13:41 | NUR ---
PT DISCHARGED HOME FROM UNIT AT APROX 1340. PT GIVEN WRITTEN AND VERBAL DC INSTUCTIONS AND VERBALIZED UNDERSTANDING. WC TO PRIVATE VEHICLE.
== END 2024-09-09 13:43 | disposition home or self-care (01) | DRG 682 ==
LOC: ER 14:04 → PCU 18:37 → SURS 09-05 16:42
PROVIDERS: Emergency Medicine; ADMIT Internal Medicine
DX: N17.9 Acute kidney failure, unspecified (principal); E43 Unspecified severe protein-calorie malnutrition; C17.2 Malignant neoplasm of ileum; C18.9 Malignant neoplasm of colon, unspecified; K50.90 Crohn's disease, unspecified, without complications; E87.1 Hypo-osmolality and hyponatremia; I82.409 Acute embolism and thrombosis of unspecified deep veins of unspecified lower extremity; Z68.1 Body mass index [BMI] 19.9 or less, adult; Z96.651 Presence of right artificial knee joint; D72.829 Elevated white blood cell count, unspecified; N40.0 Benign prostatic hyperplasia without lower urinary tract symptoms; F32.A Depression, unspecified; I10 Essential (primary) hypertension; E78.5 Hyperlipidemia, unspecified; G50.0 Trigeminal neuralgia; F41.9 Anxiety disorder, unspecified; J45.909 Unspecified asthma, uncomplicated; R19.7 Diarrhea, unspecified; E86.9 Volume depletion, unspecified; Z93.2 Ileostomy status; Z90.49 Acquired absence of other specified parts of digestive tract; Z88.0 Allergy status to penicillin; Z87.19 Personal history of other diseases of the digestive system; Z79.01 Long term (current) use of anticoagulants; Z79.899 Other long term (current) drug therapy; Z51.11 Encounter for antineoplastic chemotherapy; Z98.890 Other specified postprocedural states
CPT/HCPCS: 36415; 71045; 74176; 80048; 80053; 82570; 83605; 83690; 83735; 83880; 84295; 84300; 84484; 84540; 85025; 87493; 87507; 93005; 93010; 96360; 96361; 99285-25; A9270; J2470; J7030

== ENCOUNTER 2024-09-11 10:20 | Observation (INO) | payer MEDICARE ==
[~2024-09-11] VITALS: Ht 182.9 cm; Wt 71.5 kg
[~2024-09-11 10:20] MED LIST changes: +ACETAMINOPHEN500 M2 PO; +BANATROL PLUS1 EAC1 PO; +CEFP200 PO; +DIPATR PO; +ENOX60I; +LOPERAMIDE212 PO; +PANT40 PO; +Prinivil10 MG PO; +ZOFRAN8 MG PO
[2024-09-11 11:05] LABS: BASOPHILS ABSOLUTE AUTO 0.04 K/mm3 (0.00-0.23); BASOPHILS PERCENT AUTO 1 % (0-2); EOSINOPHILS ABSOLUTE AUTO 0.18 K/mm3 (0.00-0.68); EOSINOPHILS PERCENT AUTO 3 % (0-6); Hematocrit 28.1 % (37.0-53.0); Hemoglobin 9.8 g/dL (13.5-17.5); IMMATURE GRAN PERCENT AUTO 2 % (0-1); LYMPHOCYTES ABSOLUTE AUTO 1.44 K/mm3 (0.84-5.20); LYMPHOCYTES PERCENT AUTO 23 % (21-46); MONOCYTES PERCENT AUTO 13 % (4-13); Mean Corpuscular HGB 30.9 pg (26.0-34.0); Mean Corpuscular HGB Conc 34.9 g/dL (31.5-36.5); Mean Corpuscular Volume 89 fL (80-100); NEUTROPHILS ABSOLUTE AUTO 3.67 K/mm3 (1.96-9.15); NEUTROPHILS PERCENT AUTO 59 % (41-73); Platelet Count 222 K/mm3 (150-400); RDW Coefficient Variation 15.6 % (11.7-14.2); RDW Standard Deviation 48.5 fL (35.1-46.3); Red Blood Cell Count 3.17 M/mm3 (4.30-5.90); White Blood Cell Count 6.23 K/mm3 (4.00-11.30)
[2024-09-11] MEDS ORDERED: NS 1,000 ML IV SCH (11:35)
[2024-09-11 11:43] LABS: Albumin, Blood 2.1 g/dL (3.4-5.0); Albumin/Globulin Ratio 0.5 (0.8-1.8); Bilirubin, Total 0.2 mg/dL (0.1-1.0); Bun/Creatinine Ratio 16.4 (12.0-20.0); Calcium, Blood 8.4 mg/dL (8.5-10.1); Creatinine, Blood 1.16 mg/dL (0.60-1.20); Globulin, Blood 3.9 g/dL (2.2-4.0); Potassium, Blood 3.7 mmol/L (3.5-5.5)
[2024-09-11 12:46] LABS: Magnesium, Blood 1.3 mg/dL (1.6-2.4); Phosphorus, Blood 2.1 mg/dL (2.5-4.9)
[2024-09-11] MEDS ORDERED: TraMADol HCl 50 MG Tab PO PRN (15:45)
[2024-09-11] MEDS ORDERED: Potassium Phos/Sodium Phos 250 MG PACK PO ONE (15:45)
[2024-09-11] MEDS ORDERED: Mag Sulfate 1 GM/D5% 100ML 100 ML IV STA (15:48)
[2024-09-11] MEDS ORDERED: Loperamide HCl 2 MG Cap PO PRN (15:50)
[2024-09-11 18:02] VITALS: BP 111/73
[2024-09-11] MEDS ORDERED: OxyCODONE 5 mg/Acetamin 325 mg TABLET PO PRN (18:40)
--- NOTE | 2024-09-11 18:46 | NUR ---
PT ADMITTED TO UNIT AT APPROX 1800 TO ROOM 331. PT ABLE TO STAND AND AMBULATE TO HOSPITAL BED. USED URINAL STANDING INDEPENDENTLY PRIOR TO GETTING INTO BED. PT REPORTS SIGNIFICANT 10/10 PAIN TO LLE, NIGHT HOSPITALIST UPDATED RE PAIN AND INEFFECTIVE PAIN MANAGEMENT. NEW ORDERS OBTAINED. ADMISSION COMPLETED INCLUDING MEDICATION RECONCILIATION. VITALS STABLE. IV LOCATED L . PT ORIENTED TO ROOM AND CALL SYSTEM.
[2024-09-11] MEDS ORDERED: FentaNYL Citrate 50 MCG/ML 2 ML Injection IV ONE (19:00)
[2024-09-11 19:21] VITALS: BP 109/69
[2024-09-11] MEDS ORDERED: Gabapentin 300 MG Cap PO SCH (21:00)
[2024-09-11] MEDS ORDERED: Apixaban 5 MG Tab PO SCH (21:00)
[2024-09-12 04:34] VITALS: BP 104/67
--- NOTE | 2024-09-12 05:46 | NUR ---
SHIFT SUMMARY; PATIENT SLEPT IN SHORT INTERVALS, REQUIRED PAIN MED FOR LEG PAIN, CALLED HOSPITALIST TO CORRECT IMODIUM ORDER.
[2024-09-12 06:04] LABS: BASOPHILS ABSOLUTE AUTO 0.03 K/mm3 (0.00-0.23); BASOPHILS PERCENT AUTO 1 % (0-2); EOSINOPHILS ABSOLUTE AUTO 0.21 K/mm3 (0.00-0.68); EOSINOPHILS PERCENT AUTO 4 % (0-6); Hematocrit 28.8 % (37.0-53.0); Hemoglobin 9.6 g/dL (13.5-17.5); IMMATURE GRAN ABSOLUTE AUTO 0.08 K/mm3 (0.00-0.10); IMMATURE GRAN PERCENT AUTO 2 % (0-1); LYMPHOCYTES ABSOLUTE AUTO 1.39 K/mm3 (0.84-5.20); LYMPHOCYTES PERCENT AUTO 29 % (21-46); MONOCYTES ABSOLUTE AUTO 0.52 K/mm3 (0.16-1.47); MONOCYTES PERCENT AUTO 11 % (4-13); Mean Corpuscular HGB 30.1 pg (26.0-34.0); Mean Corpuscular HGB Conc 33.3 g/dL (31.5-36.5); Mean Corpuscular Volume 90 fL (80-100); Mean Platelet Volume 8.9 fL (9.1-12.4); NEUTROPHILS ABSOLUTE AUTO 2.62 K/mm3 (1.96-9.15); NEUTROPHILS PERCENT AUTO 54 % (41-73); Platelet Count 234 K/mm3 (150-400); RDW Coefficient Variation 15.9 % (11.7-14.2); RDW Standard Deviation 50.2 fL (35.1-46.3); Red Blood Cell Count 3.19 M/mm3 (4.30-5.90); White Blood Cell Count 4.85 K/mm3 (4.00-11.30)
[2024-09-12 06:22] LABS: Alanine Aminotransfer (ALT/SGP 117 U/L (12-78); Albumin, Blood 1.9 g/dL (3.4-5.0); Albumin/Globulin Ratio 0.5 (0.8-1.8); Alk Phos 165 U/L (50-136); Anion Gap 10 mmol/L (3-11); Aspartate Aminotrans (AST/SGOT 92 U/L (12-37); Bilirubin, Direct <0.1 mg/dL (0.0-0.3); Bilirubin, Indirect Unable to Calculate mg/dL (0.1-0.7); Bilirubin, Total 0.3 mg/dL (0.1-1.0); Blood Urea Nitrogen 19 mg/dL (8-24); Bun/Creatinine Ratio 16.1 (12.0-20.0); CO2, Blood 19 mmol/L (21-32); Calcium, Blood 8.4 mg/dL (8.5-10.1); Chloride, Blood 113 mmol/L (98-108); Creatinine, Blood 1.18 mg/dL (0.60-1.20); Globulin, Blood 3.6 g/dL (2.2-4.0); Glomerular Filtration Rate 67 (60-); Glucose, Blood 81 mg/dL (70-99); Potassium, Blood 4.2 mmol/L (3.5-5.5); Sodium, Blood 138 mmol/L (136-145); Total Protein, Blood 5.5 g/dL (6.4-8.2)
[2024-09-12 07:31] VITALS: BP 102/70
[2024-09-12] MEDS ORDERED: Loperamide HCl 2 MG Cap PO SCH (09:00)
[2024-09-12] MEDS ORDERED: Enoxaparin 40 MG/0.4 ML SYR SC SCH (09:00)
[2024-09-12] MEDS ORDERED: Percocet 5-3251 EACH PO (15:27)
--- NOTE | 2024-09-12 15:43 | NUR ---
DISCHARGE SUMMARY PT DISCHARGED HOME WITH HH FOR COLOSTOMY CARE. NEW RX FAXED TO [facility] PER T PREFERENCE. HARD RX FOR PERCOCET PROVIDED TO PT. DISCHARGE PACKET REVIEWED WITH PT. EDUCATED PT ON HOW TO OBTAIN RESULTS FROM ECHO BY CONTACTING MEDICAL RECORDS OR PROVIDING PERMISSION TO PCP TO REQUEST MEDICAL RECORDS. IV REMOVED AND SITE APPEARS WNL. PT WHEELED DOWN TO PRIVATE VEHICLE BY FUEL ASSEMBLER. SPOUSE PICKED UP PT.
== END 2024-09-12 15:47 | disposition home health service (06) ==
LOC: ER 10:20 → MEDS 10:21
PROVIDERS: Student in an Organized Health Care Education/Training Program; ADMIT Family Medicine
DX: I95.9 Hypotension, unspecified (principal); R60.0 Localized edema; M79.662 Pain in left lower leg; M79.661 Pain in right lower leg; E83.42 Hypomagnesemia; E83.39 Other disorders of phosphorus metabolism; D64.9 Anemia, unspecified; G50.0 Trigeminal neuralgia; F32.9 Major depressive disorder, single episode, unspecified; K50.90 Crohn's disease, unspecified, without complications; E78.5 Hyperlipidemia, unspecified; C17.2 Malignant neoplasm of ileum; J44.9 Chronic obstructive pulmonary disease, unspecified; Z79.01 Long term (current) use of anticoagulants; Z88.0 Allergy status to penicillin
CPT/HCPCS: 36415; 71046; 80053; 82248; 83735; 83880; 84100; 84484; 85025; 93005; 93010; 93306; 93971; 96375; 97110; 97116; 97163; 99285-25; A9270; G0378; J3010; J3475; J7030

== ENCOUNTER 2024-11-14 14:10 | Day surgery (SDC) | payer MEDICARE ==
[~2024-11-14 14:10] MED LIST changes: +Percocet 5-3251 EACH PO
[2024-11-14 18:59] LABS: BASOPHILS ABSOLUTE AUTO 0.05 K/mm3 (0.00-0.23); BASOPHILS PERCENT AUTO 1 % (0-2); EOSINOPHILS ABSOLUTE AUTO 0.67 K/mm3 (0.00-0.68); EOSINOPHILS PERCENT AUTO 8 % (0-6); Hematocrit 30.4 % (37.0-53.0); Hemoglobin 9.6 g/dL (13.5-17.5); IMMATURE GRAN ABSOLUTE AUTO 0.04 K/mm3 (0.00-0.10); IMMATURE GRAN PERCENT AUTO 1 % (0-1); LYMPHOCYTES ABSOLUTE AUTO 1.32 K/mm3 (0.84-5.20); LYMPHOCYTES PERCENT AUTO 16 % (21-46); MONOCYTES ABSOLUTE AUTO 0.68 K/mm3 (0.16-1.47); MONOCYTES PERCENT AUTO 8 % (4-13); Mean Corpuscular HGB Conc 31.6 g/dL (31.5-36.5); Mean Corpuscular Volume 94 fL (80-100); NEUTROPHILS ABSOLUTE AUTO 5.44 K/mm3 (1.96-9.15); NEUTROPHILS PERCENT AUTO 66 % (41-73); NRBC ABSOLUTE 0.00 K/mm3 (0.00-0.02); NRBC Auto 0.0 /100 WBC (0.0-0.2); Platelet Count 360 K/mm3 (150-400); RDW Coefficient Variation 14.7 % (11.7-14.2); RDW Standard Deviation 51.0 fL (35.1-46.3)
[2024-11-14 19:15] LABS: Alanine Aminotransfer (ALT/SGP 36.0 U/L (12-78); Albumin, Blood 3.6 g/dL (3.4-5.0); Albumin/Globulin Ratio 0.9 (0.8-1.8); Anion Gap 7.0 mmol/L (3-11); Aspartate Aminotrans (AST/SGOT 30.0 U/L (12-37); Bilirubin, Total 0.3 mg/dL (0.1-1.0); Blood Urea Nitrogen 34.0 mg/dL (8-24); CO2, Blood 22.0 mmol/L (21-32); Calcium, Blood 9.5 mg/dL (8.5-10.1); Chloride, Blood 109.0 mmol/L (98-108); Creatinine, Blood 1.12 mg/dL (0.60-1.20); Globulin, Blood 3.9 g/dL (2.2-4.0); Glucose, Blood 98.0 mg/dL (70-99); Magnesium, Blood 1.8 mg/dL (1.6-2.4); Phosphorus, Blood 3.7 mg/dL (2.5-4.9); Potassium, Blood 3.9 mmol/L (3.5-5.5); Sodium, Blood 134.0 mmol/L (136-145); Total Protein, Blood 7.5 g/dL (6.4-8.2)
== END 2024-11-14 16:18 | disposition home or self-care (01) ==
LOC: ATC 14:10
PROVIDERS: Student in an Organized Health Care Education/Training Program
DX: E46 Unspecified protein-calorie malnutrition (principal); J45.909 Unspecified asthma, uncomplicated; I10 Essential (primary) hypertension; Z79.899 Other long term (current) drug therapy; Z88.0 Allergy status to penicillin
CPT/HCPCS: 36591; 80053; 83735; 84100; 85025

== ENCOUNTER 2024-11-20 00:33 | Day surgery (SDC) | payer MEDICARE ==
[2024-11-20 10:53] VITALS: BP 136/78
[2024-11-20 11:46] LABS: BASOPHILS ABSOLUTE AUTO 0.05 K/mm3 (0.00-0.23); BASOPHILS PERCENT AUTO 1 % (0-2); EOSINOPHILS ABSOLUTE AUTO 0.55 K/mm3 (0.00-0.68); EOSINOPHILS PERCENT AUTO 7 % (0-6); Hematocrit 30.4 % (37.0-53.0); Hemoglobin 9.8 g/dL (13.5-17.5); IMMATURE GRAN ABSOLUTE AUTO 0.03 K/mm3 (0.00-0.10); IMMATURE GRAN PERCENT AUTO 0 % (0-1); LYMPHOCYTES ABSOLUTE AUTO 1.36 K/mm3 (0.84-5.20); LYMPHOCYTES PERCENT AUTO 17 % (21-46); MONOCYTES ABSOLUTE AUTO 0.48 K/mm3 (0.16-1.47); MONOCYTES PERCENT AUTO 6 % (4-13); Mean Corpuscular HGB Conc 32.2 g/dL (31.5-36.5); Mean Corpuscular Volume 92 fL (80-100); NEUTROPHILS ABSOLUTE AUTO 5.72 K/mm3 (1.96-9.15); NEUTROPHILS PERCENT AUTO 70 % (41-73); NRBC ABSOLUTE 0.00 K/mm3 (0.00-0.02); NRBC Auto 0.0 /100 WBC (0.0-0.2); Platelet Count 248 K/mm3 (150-400); RDW Coefficient Variation 14.3 % (11.7-14.2); RDW Standard Deviation 47.9 fL (35.1-46.3)
[2024-11-20 12:26] LABS: Alanine Aminotransfer (ALT/SGP 33.0 U/L (12-78); Albumin, Blood 3.5 g/dL (3.4-5.0); Albumin/Globulin Ratio 0.9 (0.8-1.8); Anion Gap 9.0 mmol/L (3-11); Aspartate Aminotrans (AST/SGOT 20.0 U/L (12-37); Bilirubin, Total 0.3 mg/dL (0.1-1.0); Blood Urea Nitrogen 36.0 mg/dL (8-24); CO2, Blood 23.0 mmol/L (21-32); Calcium, Blood 9.0 mg/dL (8.5-10.1); Chloride, Blood 110.0 mmol/L (98-108); Creatinine, Blood 0.98 mg/dL (0.60-1.20); Globulin, Blood 4.0 g/dL (2.2-4.0); Glucose, Blood 103.0 mg/dL (70-99); Magnesium, Blood 1.9 mg/dL (1.6-2.4); Phosphorus, Blood 4.0 mg/dL (2.5-4.9); Potassium, Blood 4.5 mmol/L (3.5-5.5); Sodium, Blood 137.0 mmol/L (136-145); Total Protein, Blood 7.5 g/dL (6.4-8.2)
--- NOTE | 2024-11-20 13:30 | NUR ---
Lab results from today faxed to Dr. Mccracken's office.
== END 2024-11-20 11:07 | disposition home or self-care (01) ==
LOC: ATC 00:33
PROVIDERS: Student in an Organized Health Care Education/Training Program
DX: E46 Unspecified protein-calorie malnutrition (principal); J45.909 Unspecified asthma, uncomplicated; G62.9 Polyneuropathy, unspecified; I73.00 Raynaud's syndrome without gangrene; G25.81 Restless legs syndrome; C18.2 Malignant neoplasm of ascending colon; Z68.24 Body mass index [BMI] 24.0-24.9, adult; Z85.038 Personal history of other malignant neoplasm of large intestine; Z88.0 Allergy status to penicillin
CPT/HCPCS: 36415; 36591; 80053; 82378; 82728; 83540; 83550; 83735; 84100; 85025; J1642

== ENCOUNTER 2024-11-27 00:28 | Day surgery (SDC) | payer MEDICARE ==
[2024-11-27 11:15] VITALS: BP 133/81
[2024-11-27 11:55] LABS: BASOPHILS ABSOLUTE AUTO 0.06 K/mm3 (0.00-0.23); BASOPHILS PERCENT AUTO 1 % (0-2); EOSINOPHILS ABSOLUTE AUTO 0.46 K/mm3 (0.00-0.68); EOSINOPHILS PERCENT AUTO 7 % (0-6); Hematocrit 31.1 % (37.0-53.0); Hemoglobin 9.8 g/dL (13.5-17.5); IMMATURE GRAN ABSOLUTE AUTO 0.02 K/mm3 (0.00-0.10); IMMATURE GRAN PERCENT AUTO 0 % (0-1); LYMPHOCYTES ABSOLUTE AUTO 1.40 K/mm3 (0.84-5.20); LYMPHOCYTES PERCENT AUTO 21 % (21-46); MONOCYTES ABSOLUTE AUTO 0.49 K/mm3 (0.16-1.47); MONOCYTES PERCENT AUTO 7 % (4-13); Mean Corpuscular HGB Conc 31.5 g/dL (31.5-36.5); Mean Corpuscular Volume 92 fL (80-100); NEUTROPHILS ABSOLUTE AUTO 4.20 K/mm3 (1.96-9.15); NEUTROPHILS PERCENT AUTO 63 % (41-73); NRBC ABSOLUTE 0.00 K/mm3 (0.00-0.02); NRBC Auto 0.0 /100 WBC (0.0-0.2); Platelet Count 221 K/mm3 (150-400); RDW Coefficient Variation 14.3 % (11.7-14.2); RDW Standard Deviation 48.4 fL (35.1-46.3)
[2024-11-27 12:47] LABS: Alanine Aminotransfer (ALT/SGP 24.0 U/L (12-78); Albumin, Blood 3.8 g/dL (3.4-5.0); Albumin/Globulin Ratio 1.0 (0.8-1.8); Anion Gap 7.0 mmol/L (3-11); Aspartate Aminotrans (AST/SGOT 12.0 U/L (12-37); Bilirubin, Total 0.3 mg/dL (0.1-1.0); Blood Urea Nitrogen 43.0 mg/dL (8-24); CO2, Blood 22.0 mmol/L (21-32); Calcium, Blood 9.4 mg/dL (8.5-10.1); Chloride, Blood 111.0 mmol/L (98-108); Creatinine, Blood 1.09 mg/dL (0.60-1.20); Globulin, Blood 3.8 g/dL (2.2-4.0); Glucose, Blood 95.0 mg/dL (70-99); Magnesium, Blood 2.0 mg/dL (1.6-2.4); Phosphorus, Blood 4.2 mg/dL (2.5-4.9); Potassium, Blood 4.6 mmol/L (3.5-5.5); Sodium, Blood 135.0 mmol/L (136-145); Total Protein, Blood 7.6 g/dL (6.4-8.2)
--- NOTE | 2024-11-27 14:18 | NUR ---
Lab results from today faxed to MD office per order.
[2024-11-27 14:36] LABS: Triglycerides 80 mg/dL (30-160)
== END 2024-11-27 11:35 | disposition home or self-care (01) ==
LOC: ATC 00:28
PROVIDERS: Student in an Organized Health Care Education/Training Program
DX: E46 Unspecified protein-calorie malnutrition (principal); J45.909 Unspecified asthma, uncomplicated; K50.90 Crohn's disease, unspecified, without complications; I10 Essential (primary) hypertension; G62.9 Polyneuropathy, unspecified; I73.00 Raynaud's syndrome without gangrene; G25.81 Restless legs syndrome; Z68.20 Body mass index [BMI] 20.0-20.9, adult; Z88.0 Allergy status to penicillin; Z90.49 Acquired absence of other specified parts of digestive tract
CPT/HCPCS: 36591; 80053; 83735; 84100; 84478; 85025; J1642

== ENCOUNTER 2024-12-04 00:23 | Day surgery (SDC) | payer MEDICARE ==
[2024-12-04 14:51] VITALS: BP 140/77
[2024-12-04 15:58] LABS: BASOPHILS ABSOLUTE AUTO 0.04 K/mm3 (0.00-0.23); BASOPHILS PERCENT AUTO 1 % (0-2); EOSINOPHILS ABSOLUTE AUTO 0.28 K/mm3 (0.00-0.68); EOSINOPHILS PERCENT AUTO 4 % (0-6); Hematocrit 30.1 % (37.0-53.0); Hemoglobin 9.5 g/dL (13.5-17.5); IMMATURE GRAN ABSOLUTE AUTO 0.02 K/mm3 (0.00-0.10); IMMATURE GRAN PERCENT AUTO 0 % (0-1); LYMPHOCYTES ABSOLUTE AUTO 1.30 K/mm3 (0.84-5.20); LYMPHOCYTES PERCENT AUTO 20 % (21-46); MONOCYTES ABSOLUTE AUTO 0.41 K/mm3 (0.16-1.47); MONOCYTES PERCENT AUTO 6 % (4-13); Mean Corpuscular HGB Conc 31.6 g/dL (31.5-36.5); Mean Corpuscular Volume 91 fL (80-100); NEUTROPHILS ABSOLUTE AUTO 4.52 K/mm3 (1.96-9.15); NEUTROPHILS PERCENT AUTO 69 % (41-73); NRBC ABSOLUTE 0.00 K/mm3 (0.00-0.02); NRBC Auto 0.0 /100 WBC (0.0-0.2); Platelet Count 236 K/mm3 (150-400); RDW Coefficient Variation 14.1 % (11.7-14.2); RDW Standard Deviation 47.0 fL (35.1-46.3)
[2024-12-04 16:17] LABS: Alanine Aminotransfer (ALT/SGP 24.0 U/L (12-78); Albumin, Blood 3.5 g/dL (3.4-5.0); Albumin/Globulin Ratio 0.9 (0.8-1.8); Anion Gap 5.0 mmol/L (3-11); Aspartate Aminotrans (AST/SGOT 16.0 U/L (12-37); Bilirubin, Total 0.2 mg/dL (0.1-1.0); Blood Urea Nitrogen 39.0 mg/dL (8-24); CO2, Blood 20.0 mmol/L (21-32); Calcium, Blood 9.1 mg/dL (8.5-10.1); Chloride, Blood 114.0 mmol/L (98-108); Creatinine, Blood 1.13 mg/dL (0.60-1.20); Globulin, Blood 3.9 g/dL (2.2-4.0); Glucose, Blood 107.0 mg/dL (70-99); Magnesium, Blood 2.0 mg/dL (1.6-2.4); Phosphorus, Blood 3.8 mg/dL (2.5-4.9); Potassium, Blood 4.0 mmol/L (3.5-5.5); Sodium, Blood 135.0 mmol/L (136-145); Total Protein, Blood 7.4 g/dL (6.4-8.2)
--- NOTE | 2024-12-04 16:51 | NUR ---
LABS FAXED TO DR DESHPANDE
== END 2024-12-04 15:10 | disposition home or self-care (01) ==
LOC: ATC 00:23
PROVIDERS: Student in an Organized Health Care Education/Training Program
DX: E46 Unspecified protein-calorie malnutrition (principal); K50.90 Crohn's disease, unspecified, without complications; G25.81 Restless legs syndrome; I10 Essential (primary) hypertension; J45.909 Unspecified asthma, uncomplicated; C18.9 Malignant neoplasm of colon, unspecified; C77.2 Secondary and unspecified malignant neoplasm of intra-abdominal lymph nodes; Z80.0 Family history of malignant neoplasm of digestive organs
CPT/HCPCS: 36415; 36591; 80053; 83735; 84100; 85025